=== PATIENT | female | born 1930 | race Caucasian/White ===

== ENCOUNTER 2016-10-31 18:53 | Emergency (ER) | payer OTHER ==
--- NOTE | 2016-10-31 22:12 | DIAGNOSTIC IMAGING REPORT ---
PROCEDURE: XR CHEST 2 VIEW INDICATION: COUGH TECHNIQUE: PA and lateral views. COMPARISON: None. FINDINGS: Allowing for overlying wires and electrodes, lungs are clear. Heart and mediastinum are normal. Mild to moderate degenerative changes of the thoracic spine.. IMPRESSION: 1. Negative chest.
--- NOTE | 2016-11-01 01:02 | ED NURSING NOTES ---
Clinical Report - Nurses [facility] [place] [address] 10/31/2016 18:58 Patient: LUCRECIA DAHL TRIAGE Triage time 19:00. Acuity: LEVEL 3. Chief Complaint: COUGH. 19:12 10/31/16. Alert. No acute distress. SEPSIS SCREEN: Sepsis Screen. Negative (no infection suspected/documented). Heart rate greater than 90. Temperature not greater than 38.3 degrees C (101 degrees F). Respiratory rate not greater than 20. --19:12 Pablo Murray R.N. 19:12 10/31/16. BP: 145/73. HR: 100. RR: 13. Temp: 98.0 F. Pain level now 0/10. --19:12 Pablo Murray R.N. 19:13 10/31/16. O2 saturation: 99% on room air. --19:13 Pablo Murray R.N. Weight: 73.9 kg stated. Height/Length: 60 inches Per Patient. BMI: 31.8. --19:07 Pablo Murray R.N. Medications Azithromycin Oral. --19:11 Pablo Murray R.N. Day Time Cough Oral. --19:11 Pablo Murray R.N. Lisinopril Oral (Tablet 10 mg) 1 tablet, daily. --19:17 Pablo Murray R.N. Fenofibrate Oral (Tablet 160 mg) 1 tablet, daily. --19:22 Pablo Murray R.N. GlyBURIDE Oral (Tablet 1.25 mg), daily. --19:22 Pablo Murray R.N. Omeprazole Oral (Tablet Delayed Release 20 mg), daily. --19:23 Pablo Murray R.N. TraZODone HCl Oral (Tablet 100 mg), at bedtime. --19:23 Trevor, K Zaynab, R.N. ROPINIRole HCl Oral (Tablet 1 mg), at HS. --19:24 Pablo Murray R.N. Sertraline HCl Oral (Tablet 100 mg), at bedtime. --19:24 Pablo Murray R.N. Zaleplon Oral (Capsule 10 mg), at HS. --19:24 Pablo Murray R.N. Lovastatin Oral (Tablet 40 mg), at bedtime. --19:25 Pablo Murray R.N. Gabapentin Oral 300 mg, 2x a day. --19:25 Pablo Murray R.N. Multiple Vitamin Oral, daily. --19:25 Pablo Murray R.N. Vitamin D Oral, daily. --19:25 Pablo Murray R.N. Stool Softener Oral, daily. --19:25 Pablo Murray R.N. The following entry was struck by Pablo Murray R.N., 19:17 (10/31/16) Reason - other. <<STRICKEN ENTRY-- Unknown. --19:10 Pablo Murray R.N. --END STRIKE>>. Allergies Lumigan. --19:10 Pablo Murray R.N. History Arrived by private vehicle. Historian: patient. Accompanied by friend. Primary physician (no pcp). ( Shortness of breath when supine and cough x 2 weeks. States cough is non productive. Seen at [facility] today. Also seen at [facility] 1 week ago and rx'd z-pack.). Onset. (2 weeks ago). Treatment EPIC CADENCE ANALYST: None. SOCIAL HX: Never smoker. No alcohol use or drug use. FALL RISK ASSESSMENT: Fall risk assessment completed. No fall risk identified. NUTRITIONAL RISK ASSESSMENT: The nutritional risk assessment revealed no deficiencies. FUNCTIONAL ASSESSMENT: Functional assessment: no impairments noted. LEARNING NEEDS ASSESSMENT: The learning needs assessment revealed no barriers. SKIN INTEGRITY ASSESSMENT: Skin integrity risk assessment completed. No skin integrity risk identified. --19:12 Pablo Murray R.N. PROBLEMS: Hypertension. Dementia. Depression. --19:30 Pablo Murray R.N. ADDITIONAL SURGERIES: Right knee surgery []. --19:30 Pablo Murray R.N. Interventions ID band on patient. To treatment room. --19:12 Pablo Murray R.N. PHYSICAL ASSESSMENT 19:13 10/31/16. To room via wheelchair. GENERAL / NEURO / PSYCH: Alert. Oriented X 4. Appears in no acute distress. RESPIRATORY: No respiratory distress. Respirations not labored. The patient can speak in full sentences. CVS: Capillary refill less than 2 seconds. GI / : Abdomen soft and nontender. SKIN: Skin is warm and dry. --19:13 Pablo Murray R.N. NURSING PROGRESS NOTES 19:13 10/31/16. The plan of care for this patient has been created. Patient gowned. Head of bed elevated. Call light placed in reach. Bed placed in lowest position. Brakes of bed on. Patient ready for evaluation- chart flagged. --19:13 Pablo Murray R.N. Telemetry strip posted to chart. --20:13 Krysten Chamberlain, ER Tech1 20:13 10/31/16. BP: 125/71. HR: 98. --20:13 Krysten Chamberlain, ER Tech1 20:41. EKG was performed by a tech and shown to the ED physician. --20:42 Krysten Chamberlain, ER Tech1 20:47 10/31/2016 Site #1 started via IV in the right antecubital space with an 20g angiocath, with aseptic technique and good blood return. Blood drawn: rainbow set. Labeled in the presence of the patient and sent to the lab. Saline lock flushed with 10 mL saline. --20:47 Yamilka Zamora R.N. 20:53 10/31/2016 Prednisone PO Tablets 60 mg given. Allergies verified and confirmed 5 rights. --20:55 Pablo Murray R.N. The patient reports no complaints and she is calm and resting quietly. RESPIRATORY: Denies difficulty breathing. --20:58 Pablo Murray R.N. Cardiac rhythm: normal sinus rhythm. --21:31 Pablo Murray R.N. 21:30 10/31/16. BP: 132/65. HR: 85. RR: 17. O2 saturation: 99%. --21:31 Pablo Murray R.N. ( Repositioned to the chair per pt request.). --22:47 Maricruz Mccallum R.N. Critical value relayed to ED by electric mule operator. Brionna-josiah 6.41. Critical value read back. Verified lab result and patient ID. Charge nurse notifed of critical value. --22:53 Yamilka Zamora R.N. 23:27 10/31/16. ( plan of care and next steps explained to pt (ultrasound). Pt and friend complaining about wait time. Pt states she is tired and "I really just wanted to be in and out of here"). --23:27 Pablo Murray R.N. 23:59 10/31/16. ( ultrasound at bedside). --23:59 Pablo Murray R.N. 00:51 11/01/16. BP: 145/70. HR: 81. RR: 16. O2 saturation: 97% on room air. Additional comments: Sister remains at bedside. --00:52 McQuoid, Krysten, ER Tech1 Care transferred and report given (Kathe Rodriguez, EDRN). --00:57 Pablo Murray R.N. 01:03 11/01/16. BP: 118/62. HR: 76. RR: 16. O2 saturation: 98%. Pain level now 0/10. --01:03 Pablo Murray R.N. 01:10 11/01/2016 xarelto * PO 15 mg --01:20 Pablo Murray R.N. DISPOSITION / DISCHARGE 01:19 11/01/16. Departure time: 01:Nov 01 2016. Condition at departure: improved and stable. No learning barriers present. Discharge instructions provided and reviewed with commercial construction superintendent and the patient. Reviewed medication(s) side effects, precautions, dosing and course information. Prescription(s) given to the patient. ( f/u appt to be scheduled adam for saturday, pt verbalizes understanding.). The patient was discharged by the physician. She was discharged home and accompanied by commercial construction superintendent. She left the Emergency Department ambulatory and via private vehicle. It Security Specialist driving. --01:30 Pablo Murray R.N. 01:19 11/01/16. Pain level now 0/10. --01:30 Pablo Murray R.N. 01:20 11/01/2016 Site #1 removed upon discharge. Catheter intact. Manual pressure and bandage applied. --01:30 Pablo Murray R.N. Locked/Released at 11/12/2016 9:15 by Josefina Peterson R.N.
--- NOTE | 2016-11-01 01:02 | ED NURSING NOTES ---
Clinical Report - Nurses [facility] [place] [address] 10/31/2016 18:58 Patient: LUCRECIA DAHL TRIAGE Triage time 19:00. Acuity: LEVEL 3. Chief Complaint: COUGH. 19:12 10/31/16. Alert. No acute distress. SEPSIS SCREEN: Sepsis Screen. Negative (no infection suspected/documented). Heart rate greater than 90. Temperature not greater than 38.3 degrees C (101 degrees F). Respiratory rate not greater than 20. --19:12 Pablo Murray R.N. 19:12 10/31/16. BP: 145/73. HR: 100. RR: 13. Temp: 98.0 F. Pain level now 0/10. --19:12 Pablo Murray R.N. 19:13 10/31/16. O2 saturation: 99% on room air. --19:13 Pablo Murray R.N. Weight: 73.9 kg stated. Height/Length: 60 inches Per Patient. BMI: 31.8. --19:07 Palbo Murray R.N. Medications Azithromycin Oral. --19:11 Pablo Murray R.N. Day Time Cough Oral. --19:11 Pablo Murray R.N. Lisinopril Oral (Tablet 10 mg) 1 tablet, daily. --19:17 Pablo Murray R.N. Fenofibrate Oral (Tablet 160 mg) 1 tablet, daily. --19:22 Pablo Murray R.N. GlyBURIDE Oral (Tablet 1.25 mg), daily. --19:22 Pablo Murray R.N. Omeprazole Oral (Tablet Delayed Release 20 mg), daily. --19:23 Pablo Murray R.N. TraZODone HCl Oral (Tablet 100 mg), at bedtime. --19:23 Trevor, K Zaynab, R.N. ROPINIRole HCl Oral (Tablet 1 mg), at HS. --19:24 Pablo Murray R.N. Sertraline HCl Oral (Tablet 100 mg), at bedtime. --19:24 Pablo Murray R.N. Zaleplon Oral (Capsule 10 mg), at HS. --19:24 Pablo Murray R.N. Lovastatin Oral (Tablet 40 mg), at bedtime. --19:25 Pablo Murray R.N. Gabapentin Oral 300 mg, 2x a day. --19:25 Pablo Murray R.N. Multiple Vitamin Oral, daily. --19:25 Pablo Murray R.N. Vitamin D Oral, daily. --19:25 Pablo Murray R.N. Stool Softener Oral, daily. --19:25 Pablo Murray R.N. The following entry was struck by Pablo Murray R.N., 19:17 (10/31/16) Reason - other. <<STRICKEN ENTRY-- Unknown. --19:10 Pablo Murray R.N. --END STRIKE>>. Allergies Lumigan. --19:10 Pablo Murray R.N. History Arrived by private vehicle. Historian: patient. Accompanied by friend. Primary physician (no pcp). ( Shortness of breath when supine and cough x 2 weeks. States cough is non productive. Seen at [facility] today. Also seen at [facility] 1 week ago and rx'd z-pack.). Onset. (2 weeks ago). 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 SOCIAL HX: Never smoker. No alcohol use or drug use. FALL RISK ASSESSMENT: Fall risk assessment completed. No fall risk identified. NUTRITIONAL RISK ASSESSMENT: The nutritional risk assessment revealed no deficiencies. FUNCTIONAL ASSESSMENT: Functional assessment: no impairments noted. LEARNING NEEDS ASSESSMENT: The learning needs assessment revealed no barriers. SKIN INTEGRITY ASSESSMENT: Skin integrity risk assessment completed. No skin integrity risk identified. --19:12 Pablo Murray R.N. PROBLEMS: Hypertension. Dementia. Depression. --19:30 Pablo Murray R.N. ADDITIONAL SURGERIES: Right knee surgery []. --19:30 Pablo Murray R.N. Interventions ID band on patient. To treatment room. --19:12 Pablo Murray R.N. PHYSICAL ASSESSMENT 19:13 10/31/16. To room via wheelchair. GENERAL / NEURO / PSYCH: Alert. Oriented X 4. Appears in no acute distress. RESPIRATORY: No respiratory distress. Respirations not labored. The patient can speak in full sentences. CVS: Capillary refill less than 2 seconds. GI / : Abdomen soft and nontender. SKIN: Skin is warm and dry. --19:13 Pablo Murray R.N. NURSING PROGRESS NOTES 19:13 10/31/16. The plan of care for this patient has been created. Patient gowned. Head of bed elevated. Call light placed in reach. Bed placed in lowest position. Brakes of bed on. Patient ready for evaluation- chart flagged. --19:13 Pablo Murray R.N. Telemetry strip posted to chart. --20:13 Krysten Chamberlain, ER Tech1 20:13 10/31/16. BP: 125/71. HR: 98. --20:13 Krysten Chamberlain, ER Tech1 20:41. EKG was performed by a tech and shown to the ED physician. --20:42 Krysten Chamberlain, ER Tech1 20:47 10/31/2016 Site #1 started via IV in the right antecubital space with an 20g angiocath, with aseptic technique and good blood return. Blood drawn: rainbow set. Labeled in the presence of the patient and sent to the lab. Saline lock flushed with 10 mL saline. --20:47 Yamilka Zamora R.N. 20:53 10/31/2016 Prednisone PO Tablets 60 mg given. Allergies verified and confirmed 5 rights. --20:55 Pablo Murray R.N. The patient reports no complaints and she is calm and resting quietly. RESPIRATORY: Denies difficulty breathing. --20:58 Pablo Murray R.N. Cardiac rhythm: normal sinus rhythm. --21:31 Pablo Murray R.N. 21:30 10/31/16. BP: 132/65. HR: 85. RR: 17. O2 saturation: 99%. --21:31 Pablo Murray R.N. ( Repositioned to the chair per pt request.). --22:47 Maricruz Mccallum R.N. Critical value relayed to ED by transverse abdominal muscle surgeon. Brionna-josiah 6.41. Critical value read back. Verified lab result and patient ID. Charge nurse notifed of critical value. --22:53 Yamilka Zamora R.N. 23:27 10/31/16. ( plan of care and next steps explained to pt (ultrasound). Pt and friend complaining about wait time. Pt states she is tired and "I really just wanted to be in and out of here"). --23:27 Pablo Murray R.N. 23:59 10/31/16. ( ultrasound at bedside). --23:59 Pablo Murray R.N. 00:51 11/01/16. BP: 145/70. HR: 81. RR: 16. O2 saturation: 97% on room air. Additional comments: Sister remains at bedside. --00:52 McQuoid, Krysten, ER Tech1 Care transferred and report given (Kathe Rodriguez, EDRN). --00:57 Pablo Murray R.N. 01:03 11/01/16. BP: 118/62. HR: 76. RR: 16. O2 saturation: 98%. Pain level now 0/10. --01:03 Pablo Murray R.N. 01:10 11/01/2016 xarelto * PO 15 mg --01:20 Pablo Murray R.N. DISPOSITION / DISCHARGE 01:19 11/01/16. Departure time: 01:Nov 01 2016. Condition at departure: improved and stable. No learning barriers present. Discharge instructions provided and reviewed with building certifier and the patient. Reviewed medication(s) side effects, precautions, dosing and course information. Prescription(s) given to the patient. ( f/u appt to be scheduled adam for saturday, pt verbalizes understanding.). The patient was discharged by the physician. She was discharged home and accompanied by building certifier. She left the Emergency Department ambulatory and via private vehicle. Manager Culinary driving. --01:30 Pablo Murray R.N. 01:19 11/01/16. Pain level now 0/10. --01:30 Pablo Murray R.N. 01:20 11/01/2016 Site #1 removed upon discharge. Catheter intact. Manual pressure and bandage applied. --01:30 Pablo Murray R.N. Locked/Released at 11/12/2016 9:15 by Josefina Peterson R.N.
--- NOTE | 2016-11-01 01:02 | ED ORDER SUMMARY ---
..... Patient: LUCRECIA DAHL OrderSheet [facility] VisitID: [id number] [address] [place] [address] 86y, F Registration Date/Time: 10/31/2016 ORDER SHEET Weight: 73.9 kg (stated) Allergies: Lumigan GENERAL ORDERS: Chest 2V Urgent (20:10/31/2016 Azul SHEETS) (Ack 20:27 Aprilner) (20:35 KWilliams R.N.) BNP Urgent (20:10/31/2016 Azul SHEETS) (Ack 20:27 Aprilner) (20:47 RCollier R.N.) CBC w Diff Urgent (20:10/31/2016 Azul SHEETS) (Ack 20:27 Aprilner) (20:47 RCollier R.N.) CMP Urgent (20:10/31/2016 Azul SHEETS) (Ack 20:27 Morgan) (20:47 RCollier R.N.) EKG - ER Stat (20:10/31/2016 Azul SHEETS) (Ack 20:27 Morgan) (20:42 AMcQuoid ER Tech1) D-Dimer Urgent (22:03 10/31/2016 Bob Iglesias) (22:07 JAGRUTIoerner) US Venous Bilat (S/P TKR 1 month ago, elevated D dimer) Urgent (23:01 10/31/2016 Bob Iglesias) (Ack 23:08 Morgan) (0:31 JAGRUTIoerner) MEDICATION ORDERS: Prednisone PO 60 mg (NOW) (20:24 10/31/2016 Azul SHEETS) (Ack 20:40 RCollier R.N.) (20:55 KWilliams R.N.) - (Xarelto 15 mg PO x 1 now) (00:41 11/01/2016 Bob Iglesias) (Ack 0:52 KWilliams R.N.) (1:20 KWilliams R.N.) IV FLUIDS: IV Saline Lock (20:26 10/31/2016 Azul SHEETS) (Ack 20:40 RCollier R.N.) (20:55 KWilliams R.N.) ORDER SHEET NOTES: [Electronically signed by Ran Washington Dr. (01:09 11/01/2016)] [Electronically signed by Josefina Peterson R.N. (09:15 11/12/2016)] [Electronically locked/signed by Josefina Peterson R.N. (:15 11/12/2016)]
--- NOTE | 2016-11-01 01:02 | ED CLINICAL REPORT ---
Clinical Report - Physicians/Mid Levels [facility] [address] [place] [address] 10/31/2016 18:58 Patient: LUCRECIA DAHL Time Seen: 1911. Arrived- By private vehicle. Historian- patient. HISTORY OF PRESENT ILLNESS Chief Complaint: COUGH. This started about 2 weeks ago and is still present. The illness is described as mild. The patient has had a cough. No sputum production, difficulty breathing, chest discomfort or pain or fever. No muscle aches, chills, sore throat or hoarseness. No nasal congestion or discharge, sinus pressure, sinus drainage or ear pain. Additional history - No known contact with a sick individual. (PT states she was told the sx were viral, but was put on a). Similar symptoms previously: None. Recent medical care: The patient was seen recently at another facility in a clinic. ( Pt was sent from urgent care for "possible PE".). REVIEW OF SYSTEMS No headache, eye discomfort, nausea, vomiting or diarrhea. No abdominal pain, hay fever, pedal edema, calf pain or difficulty with urination. No skin rash or enlarged lymph nodes. She has had mild joint pain (R knee--pt had knee replacement about 4 weeks ago.) with swelling. All systems otherwise negative, except as recorded above. PAST HISTORY Hypertension. Dementia. Depression. --19:30 Pablo Murray R.N. ADDITIONAL SURGERIES: Right knee surgery. Problems: Hypertension. Dementia. Depression. Additional Surgeries: Right knee surgery []. Medications: Stool Softener Oral, daily. Vitamin D Oral, daily. Multiple Vitamin Oral, daily. Gabapentin Oral 300 mg, 2x a day. Lovastatin Oral (Tablet 40 mg), at bedtime. Zaleplon Oral (Capsule 10 mg), at HS. Sertraline HCl Oral (Tablet 100 mg), at bedtime. ROPINIRole HCl Oral (Tablet 1 mg), at HS. TraZODone HCl Oral (Tablet 100 mg), at bedtime. Omeprazole Oral (Tablet Delayed Release 20 mg), daily. GlyBURIDE Oral (Tablet 1.25 mg), daily. Fenofibrate Oral (Tablet 160 mg) 1 tablet, daily. Lisinopril Oral (Tablet 10 mg) 1 tablet, daily. Day Time Cough Oral. Azithromycin Oral. Allergies: Lumigan. SOCIAL HISTORY Never smoker. No alcohol use or drug use. ADDITIONAL NOTES The nursing notes have been reviewed. PHYSICAL EXAM Vital Signs: 10/31/2016 19:12 BP: 145/73. HR: 100. RR: 13. Temp: 98.0 F. Appearance: Alert. No acute distress. Eyes: Pupils equal, round and reactive to light. Eyes normal inspection. ENT: Nose normal. Neck: Normal inspection. Neck supple. CVS: Normal heart rate and rhythm. Heart sounds normal. Pulses normal. Respiratory: No respiratory distress. Breath sounds normal. Abdomen: Soft and nontender. Back: Normal inspection. Skin: Skin warm and dry. Normal skin color. No rash. Normal skin turgor. Extremities: Mild non-pitting edema of the right lower extremity involving the ankle and lower leg. No calf tenderness. (R knee incision is healing well. No evidence of infection.). Neuro: Oriented X 3. No motor deficit. No sensory deficit. LABS, X-RAYS, AND EKG EKG: EKG time: (2040). No acute process. Normal sinus rhythm. Rate: 96. Normal P waves. Normal FINESSE. Normal QRS complex. Normal axis. Normal QT and QTc. Non-specific ST segment / T wave abnormalities. Prior EKG unavailable. The study has been interpreted contemporaneously by me. The study has been independently viewed by me. The EKG appears to be a good tracing. I agree with and confirm the computer reading of the EKG. Chest X-ray: No acute disease. Normal lung markings present. Normal heart size. Mediastinum normal. Great vessels normal. Soft tissues normal. No infiltrate. No fracture. No bony lesion present. Views: AP (portable). The X-rays were independently viewed by me. Prior films were not available for comparison. Lower Extremity Sonography: Positive exam (R post tibial V occlusion. Left mid posterior tib V occlusion). Study type: utilized duplex sonography. The exam was performed by a magnetic testing technician. The study was interpreted by the radiologist and discussed with the radiologist. Prior studies were not available for comparison. Interpretation time: 00:58. Laboratory Tests: CBC w Diff: (COURTNEY: 10/31/2016 20:45) ( [facility] 10/31/2016 21:03) Final results Test Result Flag Units (Reference) WHITE BLOOD COUNT 7.4 K/uL (4.5-11.5) RED BLOOD COUNT 3.49 L M/uL (4.00-5.20) HEMOGLOBIN 11.3 L gm/dL (12.0-16.0) HEMATOCRIT 33.4 L % (36.0-46.0) MEAN CELL VOLUME 96 fL (80-100) MEAN CORPUSCULAR HGB 32 pg (26-34) MEAN CORPUSCULAR HGB CONC 34 g/dL (31-37) RED CELL DISTRIBUTION WIDTH 13.0 % (11.6-14.8) PLATELET COUNT 346 K/uL (150-400) NEUTROPHIL % 82.7 H % (50-75) LYMPH % 13.1 L % (25-40) MONO % 0.3 L % (3-14) EOSINOPHIL % 3.8 % (0-4) BASOPHIL % 0.1 % (0-2) BNP: (COURTNEY: 10/31/2016 20:45) ( [facility] 10/31/2016 21:27) Final results Test Result Flag Units (Reference) B-TYPE NATRIURETIC PEPTIDE 143 H pg/ml (5-100) CMP: (COURTNEY: 10/31/2016 20:45) ( [facility] 10/31/2016 21:16) Final results Test Result Flag Units (Reference) GLUCOSE 144 H mg/dL (70-110) BUN 23 H mg/dL (7-18) CREATININE 1.3 mg/dL (0.6-1.3) Estimated GFR 41.48 mL/min Estimated GFR- 50.27 mL/min Note: Persistent reduction over 3 months in eGFR<60 mL/min/1.73 m2 defines CKD. Patients with eGFR values>=60 mL/min/1.73 m2 may also have CKD if evidence ofpersistent proteinuria. Additional information may be foundat www.kidney.org. SODIUM 141 mmol/L (136-145) POTASSIUM 3.9 mmol/L (3.5-5.1) CHLORIDE 105 mmol/L (98-107) CARBON DIOXIDE 26 mmol/L (21-32) CALCIUM 9.7 mg/dL (8.5-10.1) TOTAL PROTEIN 7.8 g/dL (6.4-8.2) ALBUMIN 3.4 g/dL (3.3-5.0) BILIRUBIN, TOTAL 0.3 mg/dL (0.0-1.0) ALKALINE PHOSPHATASE 89 U/L (46-116) AST (SGOT) 34 U/L (15-37) ALT (SGPT) 34 U/L (12-78) . Pulse Oximetry: 10/31/2016 19:13 O2 saturation: 99%. (FIO2 - room air). Interpretation: normal. PROGRESS AND PROCEDURES Course of Care: Pt was worked up for her cough. She was signed out to Dr. Washington at change of shift, pending remainder of work-up. Pt has DVT's, but no hypoxia at any point of her ED visit. Will start Xarelto and outpt f/u. Disposition: Discharged home in good and improved condition. Condition: good. CLINICAL IMPRESSION Acute deep venous thrombosis of the right tibial vein and left tibial vein. Acute seasonal allergic rhinitis secondary to pollen. INSTRUCTIONS Your Current Medications: CONTINUE TAKING THE FOLLOWING MEDICATIONS: Azithromycin Oral. Day Time Cough Oral. Fenofibrate Oral : Tablet 160 mg, 1 tablet daily. Gabapentin Oral : 300 mg 2x a day. GlyBURIDE Oral : Tablet 1.25 mg, daily. Lisinopril Oral : Tablet 10 mg, 1 tablet daily. Lovastatin Oral : Tablet 40 mg, at bedtime. Multiple Vitamin Oral : daily. Omeprazole Oral : Tablet Delayed Release 20 mg, daily. ROPINIRole HCl Oral : Tablet 1 mg, at HS. Sertraline HCl Oral : Tablet 100 mg, at bedtime. Stool Softener Oral : daily. TraZODone HCl Oral : Tablet 100 mg, at bedtime. Vitamin D Oral : daily. Zaleplon Oral : Capsule 10 mg, at HS. Prescription Medications: Flonase nasal spray: 2 sprays to each nostril daily until symptoms resolve. Dispense one (1) unit. Substitution is permissible Prednisone 20 mg: take 2 orally every day for 4 days. Dispense sufficient quantity. No refills. Xarelto 15 mg 1 PO BID Disp #42 No refills. Follow-up: Follow up with your doctor in about two days. Call for an appointment. Blood pressure screening was not performed during this visit because the patient has an active diagnosis of hypertension. (Electronically signed by Ran Washington Dr. 11/01/2016 1:09)
--- NOTE | 2016-11-01 01:02 | ED ORDER SUMMARY ---
..... Patient: LUCRECIA DAHL OrderSheet [facility] VisitID: [id number] [address] [place] [address] 86y, F Registration Date/Time: 10/31/2016 ORDER SHEET Weight: 73.9 kg (stated) Allergies: Lumigan GENERAL ORDERS: Chest 2V Urgent (20:10/31/2016 Azul SHEETS) (Ack 20:27 Aprilner) (20:35 KWilliams R.N.) BNP Urgent (20:10/31/2016 Azul SHEETS) (Ack 20:27 Aprilner) (20:47 RCollier R.N.) CBC w Diff Urgent (20:10/31/2016 Azul SHEETS) (Ack 20:27 Aprilner) (20:47 RCollier R.N.) CMP Urgent (20:10/31/2016 Azul SHEETS) (Ack 20:27 Morgan) (20:47 RCollier R.N.) EKG - ER Stat (20:10/31/2016 Azul SHEETS) (Ack 20:27 Morgan) (20:42 AMcQuoid ER Tech1) D-Dimer Urgent (22:03 10/31/2016 Bob Iglesias) (22:07 JAGRUTIoerner) US Venous Bilat (S/P TKR 1 month ago, elevated D dimer) Urgent (23:01 10/31/2016 Bob Iglesias) (Ack 23:08 Morgan) (0:31 JAGRUTIoerner) MEDICATION ORDERS: Prednisone PO 60 mg (NOW) (20:24 10/31/2016 Azul SHEETS) (Ack 20:40 RCollier R.N.) (20:55 KWilliams R.N.) - (Xarelto 15 mg PO x 1 now) (00:41 11/01/2016 Bob Iglesias) (Ack 0:52 KWilliams R.N.) (1:20 KWilliams R.N.) IV FLUIDS: IV Saline Lock (20:26 10/31/2016 Azul SHEETS) (Ack 20:40 RCollier R.N.) (20:55 KWilliams R.N.) ORDER SHEET NOTES: [Electronically signed by Ran Washington Dr. (01:09 11/01/2016)] [Electronically signed by Josefina Peterson R.N. (09:15 11/12/2016)] [Electronically locked/signed by Josefina Peterson R.N. (:15 11/12/2016)]
--- NOTE | 2016-11-01 07:45 | DIAGNOSTIC IMAGING REPORT ---
PROCEDURE: US VENOUS - BILATERAL EXT INDICATION: SWELLING TECHNIQUE: Duplex sonography of the deep venous system in both lower extremities was performed. Compression and augmentation techniques were used. COMPARISON: None. FINDINGS: Right leg: Posterior tibial vein demonstrates expansile hypoechoic material filling the vein in the proximal, mid, and distal segments. No flow or compressibility. Peroneal veins were not well seen. The popliteal vein is widely patent without cranial extension of thrombus. More proximal deep veins are patent. Left leg: The proximal aspect of the posterior tibial vein was not seen. Peroneal veins not seen. Popliteal vein widely patent. Superficial and common femoral veins are also patent and normally compressible. IMPRESSION: 1. There is acute expansile thrombus in the posterior tibial veins bilaterally, right more extensive than left. 2. Neither DVT shows proximal extension to the popliteal vein. 3. Findings conveyed by the technologist to the emergency room provider.
--- NOTE | 2016-11-12 09:16 | ED DISCHARGE INSTRUCTIONS ---
Patient: LUCRECIA DAHL General Instructions [facility] VisitID: [id number] [place] [address] 86y, F Registration Date/Time: 10/31/2016 Acute deep venous thrombosis of the right tibial vein and left tibial vein. Acute seasonal allergic rhinitis secondary to pollen. INSTRUCTIONS Your Current Medications: CONTINUE TAKING THE FOLLOWING MEDICATIONS: Azithromycin Oral. Day Time Cough Oral. Fenofibrate Oral : Tablet 160 mg, 1 tablet daily. Gabapentin Oral : 300 mg 2x a day. GlyBURIDE Oral : Tablet 1.25 mg, daily. Lisinopril Oral : Tablet 10 mg, 1 tablet daily. Lovastatin Oral : Tablet 40 mg, at bedtime. Multiple Vitamin Oral : daily. Omeprazole Oral : Tablet Delayed Release 20 mg, daily. ROPINIRole HCl Oral : Tablet 1 mg, at HS. Sertraline HCl Oral : Tablet 100 mg, at bedtime. Stool Softener Oral : daily. TraZODone HCl Oral : Tablet 100 mg, at bedtime. Vitamin D Oral : daily. Zaleplon Oral : Capsule 10 mg, at HS. Prescription Medications: Flonase nasal spray: 2 sprays to each nostril daily until symptoms resolve. Dispense one (1) unit. Substitution is permissible Prednisone 20 mg: take 2 orally every day for 4 days. Dispense sufficient quantity. No refills. Xarelto 15 mg 1 PO BID Disp #42 No refills. Follow-up: Follow up with your doctor in about two days. Call for an appointment. Blood pressure screening was not performed during this visit because the patient has an active diagnosis of hypertension. ADDITIONAL INFORMATION Nasal Allergy Nasal Allergy, also called Allergic Rhinitis occurs after exposure to pollen, molds, mildew, animal dander (scales from animal skin, hair and feathers), dust, smoke and fumes. (These are called allergens). When pollen causes a nasal allergy it is commonly called Hay Fever. When these particles contact the lining of the nose, eyes, eyelids, sinuses or throat, they cause the cells to release a chemical called histamine. Histamine may cause a watery discharge from the eyes or nose. It may also cause violent sneezing, nasal congestion, itching of the eyes, nose, throat and mouth. Prevention: Nasal allergy cannot be cured but symptoms can be reduced. Avoid or reduce exposure to the allergen when possible, by the following measures: POLLEN Stay indoors on hot windy days during pollen season Keep windows and doors closed Use an air conditioner with an electrostatic filter DUST, MOLD & MILDEW Follow these measures, especially in the bedroom: When cleaning use vacuum auto crane driver, oiled mops and damp cloths; dont stir up the dust. Once a week clean the ann, woodwork and floors with a damp mop and vacuum carpets. Once a year clean the bed frame and springs (do this outside). Cover the box springs with plastic. Do not use mattress pads. Remove stuffed chairs and rugs from the bedroom. Discard old moldy books, furniture and bedding. Use synthetic fabrics for furniture, curtains and bedding. Avoid quilts, comforters, and stuffed toys. ANIMAL DANDER Remove all indoor pets (except fish and reptiles). Avoid all contact with furry animals. Avoid down-stuffed pillows and coats. Some persons are also sensitive to wool and should avoid it. OTHER IRRITANTS Do not smoke and avoid the smoke of others. Some persons are sensitive to cosmetic powder, baby powder and powdered laundry detergents. Therefore, these powders should be avoided. Home Care: DECONGESTANT pills and sprays (Sudafed, NeoSynephrine, Afrin), reduce tissue swelling and watery discharge. Overuse of nasal decongestant sprays may make symptoms worse. Do not use these more often than recommended. ANTIHISTAMINES block the release of histamine during the allergic response. Antihistamines are more effective when taken BEFORE symptoms develop. Unless a prescription antihistamine was prescribed, you may take CLARITIN (loratadine). (Claritin is an [id number] antihistamine that does not cause drowsiness.) STEROID nasal sprays (Beconase, Vancenase, Nasalide) or oral steroids (Prednisone) may also be prescribed for more severe symptoms. These help to reduce the local inflammation which adds to the allergic response. If you have ASTHMA, pollen season may make your asthma symptoms worse. It is important that you use your asthma medicines as directed during this time to prevent or treat attacks. Some persons with asthma have a worsening of their asthma symptoms when taking antihistamines. If you notice this, stop the antihistamines and notify your doctor. Follow Up with your doctor or as directed by our staff if your symptoms are not improving with the treatment advised. Get Prompt Medical Attention if any of the following occur: Facial or sinus pain or colored drainage from the nose Severe headache or ear pain Fever of 100.4F (38C) or higher, or as directed by your healthcare provider Wheezing or trouble breathing (If you already know you have asthma, return if your asthma symptoms do not respond to the usual doses of your medicine) Cough with lots of colored sputum (mucus) Deep Vein Thrombosis Deep Vein Thrombosis (DVT) means there is a blood clot in a deep vein of the leg. This may cause redness, swelling, warmth and pain of the leg. If the blood clot grows larger, a piece may break off and go to the lungs (pulmonary embolus) or to the brain (stroke). Factors that increase risk of a DVT include: overweight, smoking, use of estrogen replacement therapy. Prolonged periods without movement (such as long distance travel, wearing a fracture cast, and prolonged bed rest after surgery or during an illness) also increases the risk of a DVT. Home Care: Stay off the affected leg as much as possible during the next week. When sitting or lying down, keep the leg elevated. Compression stockings may be advised to improve blood flow in the lower legs. When resting, move your ankles, toes and knees frequently to stimulate blood flow. You will be prescribed an anti-coagulant medicine (pills or shots). Take it exactly as directed. Follow Up with your doctor as advised. NOTE: A radiologist will review any X-rays that were taken. We will notify you of any new findings that may affect your care. Get Prompt Medical Attention if any of the following occur: Shortness of breath or painful breathing Chest pain, repeated cough or coughing up blood Fever of 100.4F (38C) or higher, or as directed by your healthcare provider Increasing swelling or increasing pain in the leg Spreading redness Unexpected bleeding (nose, gums, cuts, urinary tract, vagina, rectum) Fluticasone Propionate Nasal spray, solution What is this medicine? FLUTICASONE (floo TIK a sone) is a corticosteroid. It helps decrease inflammation in your nose. This medicine is used to treat the symptoms of allergies like sneezing, itching, and runny or stuffy nose. How should I use this medicine? This medicine is for use in the nose. Follow the directions on your prescription label. This medicine works best if used regularly. Do not use more often than directed. Make sure that you are using your nasal spray correctly. Ask you doctor or health care provider if you have any questions. Talk to your knit goods press hand regarding the use of this medicine in children. While this drug may be prescribed for children as young as 4 years old for selected conditions, precautions do apply. What side effects may I notice from receiving this medicine? Side effects that you should report to your doctor or health child care attendant as soon as possible: allergic reactions like skin rash, itching or hives, swelling of the face, lips, or tongue changes in vision flu-like symptoms white patches or sores in the mouth or nose Side effects that usually do not require medical attention (report to your doctor or health child care attendant if they continue or are bothersome): burning or irritation inside the nose or throat cough headache nosebleed unusual taste or smell What may interact with this medicine? ketoconazole metyrapone some medicines for HIV vaccines What if I miss a dose? If you miss a dose, use it as soon as you remember. If it is almost time for your next dose, use only that dose and continue with your regular schedule. Do not use double or extra doses. Where should I keep my medicine? Keep out of the reach of children. Store at room temperature between 15 and 30 degrees C (59 and 86 degrees F). Throw away any unused medicine after the expiration date. What should I tell my health care provider before I take this medicine? They need to know if you have any of these conditions: infection, like tuberculosis, herpes, or fungal infection recent surgery on nose or sinuses taking corticosteroid by mouth an unusual or allergic reaction to fluticasone, steroids, other medicines, foods, dyes, or preservatives or trying to get breast-feeding What should I watch for while using this medicine? Visit your doctor or health child care attendant for regular checks on your progress. Some symptoms may improve within 12 hours after starting use. Check with your doctor or health child care attendant if there is no improvement in your condition after 3 weeks of use. Do not come in contact with people who have chickenpox or the measles while you are taking this medicine. If you do, call your doctor right away. Prednisone Oral tablet What is this medicine? PREDNISONE (PRED ni sone) is a corticosteroid. It is commonly used to treat inflammation of the skin, joints, lungs, and other organs. Common conditions treated include asthma, allergies, and arthritis. It is also used for other conditions, such as blood disorders and diseases of the adrenal glands. How should I use this medicine? Take this medicine by mouth with a glass of water. Follow the directions on the prescription label. Take this medicine with food. If you are taking this medicine once a day, take it in the morning. Do not take more medicine than you are told to take. Do not suddenly stop taking your medicine because you may develop a severe reaction. Your doctor will tell you how much medicine to take. If your doctor wants you to stop the medicine, the dose may be slowly lowered over time to avoid any side effects. Talk to your knit goods press hand regarding the use of this medicine in children. Special care may be needed. What side effects may I notice from receiving this medicine? Side effects that you should report to your doctor or health child care attendant as soon as possible: allergic reactions like skin rash, itching or hives, swelling of the face, lips, or tongue changes in emotions or moods changes in vision depressed mood eye pain fever or chills, cough, sore throat, pain or difficulty passing urine increased thirst swelling of ankles, feet Side effects that usually do not require medical attention (report to your doctor or health child care attendant if they continue or are bothersome): confusion, excitement, restlessness headache nausea, vomiting skin problems, acne, thin and shiny skin trouble sleeping weight gain What may interact with this medicine? Do not take this medicine with any of the following medications: metyrapone mifepristone This medicine may also interact with the following medications: aminoglutethimide amphotericin B aspirin and aspirin-like medicines barbiturates certain medicines for diabetes, like glipizide or glyburide cholestyramine cholinesterase inhibitors cyclosporine digoxin diuretics ephedrine female hormones, like estrogens and control pills isoniazid ketoconazole NSAIDS, medicines for pain and inflammation, like ibuprofen or naproxen phenytoin rifampin toxoids vaccines warfarin What if I miss a dose? If you miss a dose, take it as soon as you can. If it is almost time for your next dose, talk to your doctor or health child care attendant. You may need to miss a dose or take an extra dose. Do not take double or extra doses without advice. Where should I keep my medicine? Keep out of the reach of children. Store at room temperature between 15 and 30 degrees C (59 and 86 degrees F). Protect from light. Keep container tightly closed. Throw away any unused medicine after the expiration date. What should I tell my health care provider before I take this medicine? They need to know if you have any of these conditions: Yocasta's syndrome diabetes glaucoma heart disease high blood pressure infection (especially a virus infection such as chickenpox, cold sores, or herpes) kidney disease liver disease mental illness myasthenia gravis osteoporosis seizures stomach or intestine problems thyroid disease an unusual or allergic reaction to lactose, prednisone, other medicines, foods, dyes, or preservatives or trying to get breast-feeding What should I watch for while using this medicine? Visit your doctor or health child care attendant for regular checks on your progress. If you are taking this medicine over a prolonged period, carry an identification card with your name and address, the type and dose of your medicine, and your doctor's name and address. This medicine may increase your risk of getting an infection. Tell your doctor or health child care attendant if you are around anyone with measles or chickenpox, or if you develop sores or blisters that do not heal properly. If you are going to have surgery, tell your doctor or health child care attendant that you have taken this medicine within the last twelve months. Ask your doctor or health child care attendant about your diet. You may need to lower the amount of salt you eat. This medicine may affect blood sugar levels. If you have diabetes, check with your doctor or health child care attendant before you change your diet or the dose of your diabetic medicine. You have been given the following additional information: Allergic Rhinitis DVT Fluticasone Propionate Nasal spray, solution Prednisone Oral tablet (Electronically signed by Ran Washington Dr. 11/01/2016 1:09)
--- NOTE | 2016-11-12 09:16 | ED DISCHARGE INSTRUCTIONS ---
Patient: LUCRECIA DAHL General Instructions [facility] VisitID: [id number] [place] [address] 86y, F Registration Date/Time: 10/31/2016 Acute deep venous thrombosis of the right tibial vein and left tibial vein. Acute seasonal allergic rhinitis secondary to pollen. INSTRUCTIONS Your Current Medications: CONTINUE TAKING THE FOLLOWING MEDICATIONS: Azithromycin Oral. Day Time Cough Oral. Fenofibrate Oral : Tablet 160 mg, 1 tablet daily. Gabapentin Oral : 300 mg 2x a day. GlyBURIDE Oral : Tablet 1.25 mg, daily. Lisinopril Oral : Tablet 10 mg, 1 tablet daily. Lovastatin Oral : Tablet 40 mg, at bedtime. Multiple Vitamin Oral : daily. Omeprazole Oral : Tablet Delayed Release 20 mg, daily. ROPINIRole HCl Oral : Tablet 1 mg, at HS. Sertraline HCl Oral : Tablet 100 mg, at bedtime. Stool Softener Oral : daily. TraZODone HCl Oral : Tablet 100 mg, at bedtime. Vitamin D Oral : daily. Zaleplon Oral : Capsule 10 mg, at HS. Prescription Medications: Flonase nasal spray: 2 sprays to each nostril daily until symptoms resolve. Dispense one (1) unit. Substitution is permissible Prednisone 20 mg: take 2 orally every day for 4 days. Dispense sufficient quantity. No refills. Xarelto 15 mg 1 PO BID Disp #42 No refills. Follow-up: Follow up with your doctor in about two days. Call for an appointment. Blood pressure screening was not performed during this visit because the patient has an active diagnosis of hypertension. ADDITIONAL INFORMATION Nasal Allergy Nasal Allergy, also called Allergic Rhinitis occurs after exposure to pollen, molds, mildew, animal dander (scales from animal skin, hair and feathers), dust, smoke and fumes. (These are called allergens). When pollen causes a nasal allergy it is commonly called Hay Fever. When these particles contact the lining of the nose, eyes, eyelids, sinuses or throat, they cause the cells to release a chemical called histamine. Histamine may cause a watery discharge from the eyes or nose. It may also cause violent sneezing, nasal congestion, itching of the eyes, nose, throat and mouth. Prevention: Nasal allergy cannot be cured but symptoms can be reduced. Avoid or reduce exposure to the allergen when possible, by the following measures: POLLEN Stay indoors on hot windy days during pollen season Keep windows and doors closed Use an air conditioner with an electrostatic filter DUST, MOLD & MILDEW Follow these measures, especially in the bedroom: When cleaning use vacuum frame repairer, oiled mops and damp cloths; dont stir up the dust. Once a week clean the ann, woodwork and floors with a damp mop and vacuum carpets. Once a year clean the bed frame and springs (do this outside). Cover the box springs with plastic. Do not use mattress pads. Remove stuffed chairs and rugs from the bedroom. Discard old moldy books, furniture and bedding. Use synthetic fabrics for furniture, curtains and bedding. Avoid quilts, comforters, and stuffed toys. ANIMAL DANDER Remove all indoor pets (except fish and reptiles). Avoid all contact with furry animals. Avoid down-stuffed pillows and coats. Some persons are also sensitive to wool and should avoid it. OTHER IRRITANTS Do not smoke and avoid the smoke of others. Some persons are sensitive to cosmetic powder, baby powder and powdered laundry detergents. Therefore, these powders should be avoided. Home Care: DECONGESTANT pills and sprays (Sudafed, NeoSynephrine, Afrin), reduce tissue swelling and watery discharge. Overuse of nasal decongestant sprays may make symptoms worse. Do not use these more often than recommended. ANTIHISTAMINES block the release of histamine during the allergic response. Antihistamines are more effective when taken BEFORE symptoms develop. Unless a prescription antihistamine was prescribed, you may take CLARITIN (loratadine). (Claritin is an nemf-oiy-oaatjxs antihistamine that does not cause drowsiness.) STEROID nasal sprays (Beconase, Vancenase, Nasalide) or oral steroids (Prednisone) may also be prescribed for more severe symptoms. These help to reduce the local inflammation which adds to the allergic response. If you have ASTHMA, pollen season may make your asthma symptoms worse. It is important that you use your asthma medicines as directed during this time to prevent or treat attacks. Some persons with asthma have a worsening of their asthma symptoms when taking antihistamines. If you notice this, stop the antihistamines and notify your doctor. Follow Up with your doctor or as directed by our staff if your symptoms are not improving with the treatment advised. Get Prompt Medical Attention if any of the following occur: Facial or sinus pain or colored drainage from the nose Severe headache or ear pain Fever of 100.4F (38C) or higher, or as directed by your healthcare provider Wheezing or trouble breathing (If you already know you have asthma, return if your asthma symptoms do not respond to the usual doses of your medicine) Cough with lots of colored sputum (mucus) Deep Vein Thrombosis Deep Vein Thrombosis (DVT) means there is a blood clot in a deep vein of the leg. This may cause redness, swelling, warmth and pain of the leg. If the blood clot grows larger, a piece may break off and go to the lungs (pulmonary embolus) or to the brain (stroke). Factors that increase risk of a DVT include: overweight, smoking, use of estrogen replacement therapy. Prolonged periods without movement (such as long distance travel, wearing a fracture cast, and prolonged bed rest after surgery or during an illness) also increases the risk of a DVT. Home Care: Stay off the affected leg as much as possible during the next week. When sitting or lying down, keep the leg elevated. Compression stockings may be advised to improve blood flow in the lower legs. When resting, move your ankles, toes and knees frequently to stimulate blood flow. You will be prescribed an anti-coagulant medicine (pills or shots). Take it exactly as directed. Follow Up with your doctor as advised. NOTE: A radiologist will review any X-rays that were taken. We will notify you of any new findings that may affect your care. Get Prompt Medical Attention if any of the following occur: Shortness of breath or painful breathing Chest pain, repeated cough or coughing up blood Fever of 100.4F (38C) or higher, or as directed by your healthcare provider Increasing swelling or increasing pain in the leg Spreading redness Unexpected bleeding (nose, gums, cuts, urinary tract, vagina, rectum) Fluticasone Propionate Nasal spray, solution What is this medicine? FLUTICASONE (floo TIK a sone) is a corticosteroid. It helps decrease inflammation in your nose. This medicine is used to treat the symptoms of allergies like sneezing, itching, and runny or stuffy nose. How should I use this medicine? This medicine is for use in the nose. Follow the directions on your prescription label. This medicine works best if used regularly. Do not use more often than directed. Make sure that you are using your nasal spray correctly. Ask you doctor or health care provider if you have any questions. Talk to your western tack assembly line worker regarding the use of this medicine in children. While this drug may be prescribed for children as young as 4 years old for selected conditions, precautions do apply. What side effects may I notice from receiving this medicine? Side effects that you should report to your doctor or health career development counselor as soon as possible: allergic reactions like skin rash, itching or hives, swelling of the face, lips, or tongue changes in vision flu-like symptoms white patches or sores in the mouth or nose Side effects that usually do not require medical attention (report to your doctor or health career development counselor if they continue or are bothersome): burning or irritation inside the nose or throat cough headache nosebleed unusual taste or smell What may interact with this medicine? ketoconazole metyrapone some medicines for HIV vaccines What if I miss a dose? If you miss a dose, use it as soon as you remember. If it is almost time for your next dose, use only that dose and continue with your regular schedule. Do not use double or extra doses. Where should I keep my medicine? Keep out of the reach of children. Store at room temperature between 15 and 30 degrees C (59 and 86 degrees F). Throw away any unused medicine after the expiration date. What should I tell my health care provider before I take this medicine? They need to know if you have any of these conditions: infection, like tuberculosis, herpes, or fungal infection recent surgery on nose or sinuses taking corticosteroid by mouth an unusual or allergic reaction to fluticasone, steroids, other medicines, foods, dyes, or preservatives or trying to get breast-feeding What should I watch for while using this medicine? Visit your doctor or health career development counselor for regular checks on your progress. Some symptoms may improve within 12 hours after starting use. Check with your doctor or health career development counselor if there is no improvement in your condition after 3 weeks of use. Do not come in contact with people who have chickenpox or the measles while you are taking this medicine. If you do, call your doctor right away. Prednisone Oral tablet What is this medicine? PREDNISONE (PRED ni sone) is a corticosteroid. It is commonly used to treat inflammation of the skin, joints, lungs, and other organs. Common conditions treated include asthma, allergies, and arthritis. It is also used for other conditions, such as blood disorders and diseases of the adrenal glands. How should I use this medicine? Take this medicine by mouth with a glass of water. Follow the directions on the prescription label. Take this medicine with food. If you are taking this medicine once a day, take it in the morning. Do not take more medicine than you are told to take. Do not suddenly stop taking your medicine because you may develop a severe reaction. Your doctor will tell you how much medicine to take. If your doctor wants you to stop the medicine, the dose may be slowly lowered over time to avoid any side effects. Talk to your western tack assembly line worker regarding the use of this medicine in children. Special care may be needed. What side effects may I notice from receiving this medicine? Side effects that you should report to your doctor or health career development counselor as soon as possible: allergic reactions like skin rash, itching or hives, swelling of the face, lips, or tongue changes in emotions or moods changes in vision depressed mood eye pain fever or chills, cough, sore throat, pain or difficulty passing urine increased thirst swelling of ankles, feet Side effects that usually do not require medical attention (report to your doctor or health career development counselor if they continue or are bothersome): confusion, excitement, restlessness headache nausea, vomiting skin problems, acne, thin and shiny skin trouble sleeping weight gain What may interact with this medicine? Do not take this medicine with any of the following medications: metyrapone mifepristone This medicine may also interact with the following medications: aminoglutethimide amphotericin B aspirin and aspirin-like medicines barbiturates certain medicines for diabetes, like glipizide or glyburide cholestyramine cholinesterase inhibitors cyclosporine digoxin diuretics ephedrine female hormones, like estrogens and control pills isoniazid ketoconazole NSAIDS, medicines for pain and inflammation, like ibuprofen or naproxen phenytoin rifampin toxoids vaccines warfarin What if I miss a dose? If you miss a dose, take it as soon as you can. If it is almost time for your next dose, talk to your doctor or health career development counselor. You may need to miss a dose or take an extra dose. Do not take double or extra doses without advice. Where should I keep my medicine? Keep out of the reach of children. Store at room temperature between 15 and 30 degrees C (59 and 86 degrees F). Protect from light. Keep container tightly closed. Throw away any unused medicine after the expiration date. What should I tell my health care provider before I take this medicine? They need to know if you have any of these conditions: Yocasta's syndrome diabetes glaucoma heart disease high blood pressure infection (especially a virus infection such as chickenpox, cold sores, or herpes) kidney disease liver disease mental illness myasthenia gravis osteoporosis seizures stomach or intestine problems thyroid disease an unusual or allergic reaction to lactose, prednisone, other medicines, foods, dyes, or preservatives or trying to get breast-feeding What should I watch for while using this medicine? Visit your doctor or health career development counselor for regular checks on your progress. If you are taking this medicine over a prolonged period, carry an identification card with your name and address, the type and dose of your medicine, and your doctor's name and address. This medicine may increase your risk of getting an infection. Tell your doctor or health career development counselor if you are around anyone with measles or chickenpox, or if you develop sores or blisters that do not heal properly. If you are going to have surgery, tell your doctor or health career development counselor that you have taken this medicine within the last twelve months. Ask your doctor or health career development counselor about your diet. You may need to lower the amount of salt you eat. This medicine may affect blood sugar levels. If you have diabetes, check with your doctor or health career development counselor before you change your diet or the dose of your diabetic medicine. You have been given the following additional information: Allergic Rhinitis DVT Fluticasone Propionate Nasal spray, solution Prednisone Oral tablet (Electronically signed by Ran Washington Dr. 11/01/2016 1:09)
--- NOTE | 2016-11-12 09:16 | ED MAR SUMMARY ---
..... Medication Administration Record [facility] [address] [place] [address] Patient: LUCRECIA DAHL Visit ID: [id number] 86y, F Weight: 73.9 kg Height/Length: 60 in BMI: 31.8 ALLERGIES: Lumigan Given 20:53 10/31/2016 Pablo Murray R.N. Medication Administered: PREDNISONE [PO], Dose: 60 mg Tablets PO. Medication Ordered: Prednisone PO 60 mg (NOW). Given 01:10 11/01/2016 Pablo Murray R.N. Medication Administered: xarelto *, Dose: 15 mg * PO. Medication Ordered: - (Xarelto 15 mg PO x 1 now).
--- NOTE | 2016-11-12 09:16 | ED MED RECONCILIATION SUMMARY ---
Patient: LUCRECIA DAHL Medication Reconciliation Report [facility] VisitID: [id number] [address] [place] [address] 86y, F Registration Date/Time: 10/31/2016 Weight: 73.9 kg Height/Length: 60 in. BMI: 31.8 ALLERGIES: Lumigan The patient's Home Medications are listed below: CONTINUE TAKING THE FOLLOWING MEDICATIONS: Azithromycin Oral Day Time Cough Oral Fenofibrate Oral (160 mg) 1 tablet, daily Gabapentin Oral 300 mg, 2x a day GlyBURIDE Oral (1.25 mg), daily Lisinopril Oral (10 mg) 1 tablet, daily Lovastatin Oral (40 mg), at bedtime Multiple Vitamin Oral, daily Omeprazole Oral (20 mg), daily ROPINIRole HCl Oral (1 mg), at HS Sertraline HCl Oral (100 mg), at bedtime Stool Softener Oral, daily TraZODone HCl Oral (100 mg), at bedtime Vitamin D Oral, daily Zaleplon Oral (10 mg), at HS The source(s) of the original Home Medication information: Not obtained. The following Medications were given to the patient in the Emergency Department: Prednisone [PO] PO 60 mg, administered: 10/31/2016 8:53:00 PM xarelto PO 15 mg, administered: 11/01/2016 1:10:00 AM The following Medications were prescribed to the patient: Xarelto 15 mg1 PO BIDDisp #42No refills. -- Ran [address] Dr. Flonasbrissa nasal spray: 2 sprays to each nostril daily until symptoms resolve. Dispense one (1) unit. Substitution is permissible -- Ran Washington Dr. Prednisone 20 mg: take 2 orally every day for 4 days. Dispense sufficient quantity. No refills. -- Ran Washington Dr.
--- NOTE | 2016-11-12 09:16 | ED MED RECONCILIATION SUMMARY ---
Patient: LUCRECIA DAHL Medication Reconciliation Report [facility] VisitID: [id number] [address] [place] [address] 86y, F Registration Date/Time: 10/31/2016 Weight: 73.9 kg Height/Length: 60 in. BMI: 31.8 ALLERGIES: Lumigan The patient's Home Medications are listed below: CONTINUE TAKING THE FOLLOWING MEDICATIONS: Azithromycin Oral Day Time Cough Oral Fenofibrate Oral (160 mg) 1 tablet, daily Gabapentin Oral 300 mg, 2x a day GlyBURIDE Oral (1.25 mg), daily Lisinopril Oral (10 mg) 1 tablet, daily Lovastatin Oral (40 mg), at bedtime Multiple Vitamin Oral, daily Omeprazole Oral (20 mg), daily ROPINIRole HCl Oral (1 mg), at HS Sertraline HCl Oral (100 mg), at bedtime Stool Softener Oral, daily TraZODone HCl Oral (100 mg), at bedtime Vitamin D Oral, daily Zaleplon Oral (10 mg), at HS The source(s) of the original Home Medication information: Not obtained. The following Medications were given to the patient in the Emergency Department: Prednisone [PO] PO 60 mg, administered: 10/31/2016 8:53:00 PM xarelto PO 15 mg, administered: 11/01/2016 1:10:00 AM The following Medications were prescribed to the patient: Xarelto 15 mg1 PO BIDDisp #42No refills. -- Ran Washington Dr. Flonasbrissa nasal spray: 2 sprays to each nostril daily until symptoms resolve. Dispense one (1) unit. Substitution is permissible -- Ran Washington Dr. Prednisone 20 mg: take 2 orally every day for 4 days. Dispense sufficient quantity. No refills. -- Ran Washington Dr.
--- NOTE | 2016-11-12 09:16 | ED MAR SUMMARY ---
..... Medication Administration Record [facility] [address] [place] [address] Patient: LUCRECIA DAHL Visit ID: [id number] 86y, F Weight: 73.9 kg Height/Length: 60 in BMI: 31.8 ALLERGIES: Lumigan Given 20:53 10/31/2016 Pablo Murray R.N. Medication Administered: PREDNISONE [PO], Dose: 60 mg Tablets PO. Medication Ordered: Prednisone PO 60 mg (NOW). Given 01:10 11/01/2016 Pablo Murray R.N. Medication Administered: xarelto *, Dose: 15 mg * PO. Medication Ordered: - (Xarelto 15 mg PO x 1 now).
== END 2016-11-01 01:19 | disposition home or self-care (01) ==
LOC: ED SRH 18:53
DX: I82.443 Acute embolism and thrombosis of tibial vein, bilateral (principal); J30.1 Allergic rhinitis due to pollen; I10 Essential (primary) hypertension; Z96.651 Presence of right artificial knee joint; Z79.899 Other long term (current) drug therapy; Z79.2 Long term (current) use of antibiotics; Z88.8 Allergy status to other drugs, medicaments and biological substances
CPT/HCPCS: 90100; 91320; 91556; 95059